=== PATIENT | female | born 1955 | race Caucasian/White ===

== ENCOUNTER 2022-12-06 18:04 | Emergency (ER) | payer BC, MEDICAID ==
[~2022-12-06] VITALS: Ht 160 cm; Wt 61.8 kg
[2022-12-06] MEDS ORDERED: niCARDipine-NS 40mg/200ml IVPB 200 ML IV SCH (18:20)
[2022-12-06 18:41] LABS: EOSINOPHILS # (AUTO) 0.1 X10'3 (0-0.9); HEMOGLOBIN 16.3 g/dl (12.0-16.0); MONOCYTES # (AUTO) 0.5 X10'3 (0-0.9)
[2022-12-06 18:43] LABS: BASOPHILS % (AUTO) 0.3 % (0-1); EOSINOPHILS % (AUTO) 0.7 % (0-6); HEMATOCRIT 49.7 % (35.0-45.0); LYMPHOCYTES % (AUTO) 9.3 % (21-51); MEAN CORPUSCULAR HEMOGLOBIN 30.4 PG (27.0-31.0); MEAN CORPUSCULAR HGB CONC 32.9 g/dL (33.0-36.5); MEAN CORPUSCULAR VOLUME 92.4 FL (78-98); MEAN PLATELET VOLUME 9.1 FL (7.4-10.4); MONOCYTES % (AUTO) 4.4 % (2-12); NEUTROPHILS # (AUTO) 9.6 X10'3 (1.8-7.7); NEUTROPHILS % (AUTO) 85.3 % (42-75); PLATELET COUNT 251 X10'3 (140-440); RED BLOOD COUNT 5.38 X10'6 (4.20-5.60); WHITE BLOOD COUNT 11.3 X10'3 (4.5-11.0)
[2022-12-06 18:48] LABS: ALANINE AMINOTRANSFERASE 25 U/L (12-78); ALBUMIN 3.5 G/DL (3.4-5.0); ALKALINE PHOSPHATASE 108 IU/L (46-116); ANION GAP 9 (8-16); ASPARTATE AMINO TRANSFERASE 23 U/L (10-37); BILIRUBIN,TOTAL 0.3 MG/DL (0.1-1.0); BLOOD UREA NITROGEN 30 MG/DL (7-18); CALCIUM 8.8 MG/DL (8.5-10.1); CHLORIDE 110 MMOL/L (99-107); CREATININE 0.81 MG/DL (0.40-0.90); GLUCOSE 108 MG/DL (70-104); POTASSIUM 3.9 MMOL/L (3.5-5.1); SODIUM 144 MMOL/L (135-145); TOTAL CARBON DIOXIDE 25.4 MMOL/L (24-32); TOTAL PROTEIN 7.1 G/DL (6.4-8.2); eGFR 70 ML/MIN
[2022-12-06 18:49] LABS: APTT 28 SECONDS (22-32)
--- NOTE | 2022-12-06 18:53 | NUR ---
REPORT CALLED ALEX AT [facility] [phone]
--- NOTE | 2022-12-06 19:00 | NUR ---
Transferred via EMS to [facility].
[2022-12-06 20:51] VITALS: BP 172/86
== END 2022-12-06 19:00 | disposition short-term general hospital (02) ==
LOC: ER 18:05
DX: S40.012A Contusion of left shoulder, initial encounter (principal); R42 Dizziness and giddiness; I61.9 Nontraumatic intracerebral hemorrhage, unspecified; W19.XXXA Unspecified fall, initial encounter; Y93.89 Activity, other specified; Y92.89 Other specified places as the place of occurrence of the external cause; Y99.8 Other external cause status
CPT/HCPCS: 36415; 70450; 71045; 73030; 80053; 85025; 85610; 85730; 86885; 86900; 86901; 93005; 96365; 99291; J3490

== ENCOUNTER 2023-01-13 16:34 | Emergency (ER) | payer BC ==
[~2023-01-13] VITALS: Ht 160 cm; Wt 57.3 kg
[2023-01-13 16:49] VITALS: BP 141/94
--- NOTE | 2023-01-13 21:50 | NUR ---
called the patients' number on file and it has been disconnected.
== END 2023-01-13 22:49 | disposition left against medical advice (07) ==
LOC: ER 16:35
DX: R60.9 Edema, unspecified (principal); Z53.21 Procedure and treatment not carried out due to patient leaving prior to being seen by health care provider
CPT/HCPCS: 99281

== ENCOUNTER 2023-01-15 12:50 | Outpatient (CLI) | payer BC | END 2023-01-15 23:59 | disposition home or self-care (01) | LOC: VAS 12:50 | PROVIDERS: ATTEND Physician Assistant | DX: I62.9 Nontraumatic intracranial hemorrhage, unspecified (principal) | CPT/HCPCS: 93971 ==